=== PATIENT | female | born 1940 | race Caucasian/White ===

== ENCOUNTER 2016-06-13 10:56 | Emergency (ER) | payer MEDICARE, OTHER ==
[~2016-06-13 10:56] MED LIST: CARDIZEM CD180 MG PO; FLONASE 0.05% N16 GM; LEVAQUIN750 MG PO; NEURONTIN 300300 MG PO; SINGULAIR10 MG PO; SYMBICORT 160-1 INHA INH; TRIAMTERENE-HC1 EAC1 PO; VALIUM 5 MG TAB5 MG PO; VENTOLIN HFA 66.7 GM INH; VENTOLIN/PROVE0.5 ML INH
[2016-06-13 12:11] LABS: HEMOGLOBIN 14.9 gm/dl (12.3-15.3); RED BLOOD COUNT 4.83 M/UL (4.00-5.10); WHITE BLOOD COUNT 6.5 K/UL (4.5-11.0)
[2016-06-13 12:50] LABS: BUN/CREATININE RATIO 20 (0-10)
== END 2016-06-13 14:30 | disposition home or self-care (01) ==
LOC: ER1 10:56
PROVIDERS: Emergency Medicine
DX: R21 Rash and other nonspecific skin eruption (principal); L29.9 Pruritus, unspecified; R22.31 Localized swelling, mass and lump, right upper limb; I10 Essential (primary) hypertension; J44.9 Chronic obstructive pulmonary disease, unspecified; Z88.0 Allergy status to penicillin
CPT/HCPCS: 36415; 80053; 85025; 85610; 85730; 99283; Q0163

== ENCOUNTER → 2020-07-17 | Outpatient (CLI) | payer MEDICARE, OTHER ==
[2020-07-18 15:15] LABS: RHEUMATOID ARTHRITIS FACTOR 10.4 IU/mL (0.0-13.9)
== END ==
LOC: RAD 13:24
PROVIDERS: Nurse Practitioner Family
DX: M79.641 Pain in right hand (principal); M79.642 Pain in left hand; M25.50 Pain in unspecified joint; D89.9 Disorder involving the immune mechanism, unspecified; R76.8 Other specified abnormal immunological findings in serum; M19.042 Primary osteoarthritis, left hand; M19.041 Primary osteoarthritis, right hand
CPT/HCPCS: 36415; 73130; 82550; 83520; 85652; 86140; 86200; 86431

== ENCOUNTER 2021-04-17 13:28 | Emergency (ER) | payer MEDICARE, OTHER | END 2021-04-17 15:49 | disposition left against medical advice (07) | LOC: ER1 13:28 | DX: S51.012A Laceration without foreign body of left elbow, initial encounter (principal); J44.9 Chronic obstructive pulmonary disease, unspecified; I10 Essential (primary) hypertension; Z88.0 Allergy status to penicillin; Z85.3 Personal history of malignant neoplasm of breast; W20.8XXA Other cause of strike by thrown, projected or falling object, initial encounter | CPT/HCPCS: 99282 ==

== ENCOUNTER → 2021-05-01 | Outpatient (CLI) | payer MEDICARE, OTHER | LOC: HEART 5 15:18 | DX: I10 Essential (primary) hypertension (principal); R06.02 Shortness of breath; R60.9 Edema, unspecified; I08.2 Rheumatic disorders of both aortic and tricuspid valves | CPT/HCPCS: 93306 ==